=== PATIENT | female | born 1965 | race Caucasian/White ===

== ENCOUNTER 2016-09-15 08:28 | Emergency (ER) | payer BC, OTHER ==
[2016-09-15] MEDS ORDERED: CEPHALEXIN 250 MG CAPSULE PO STA (08:55)
[2016-09-15] MEDS ORDERED: CEPHALEXIN 250 MG CAPSULE PO ONE (08:58)
== END 2016-09-15 09:11 | disposition home or self-care (01) ==
DX: S61.211A Laceration without foreign body of left index finger without damage to nail, initial encounter (principal); W26.0XXA Contact with knife, initial encounter; Y92.009 Unspecified place in unspecified non-institutional (private) residence as the place of occurrence of the external cause
CPT/HCPCS: 99283; A9270

== ENCOUNTER 2016-11-04 10:50 | Outpatient (CLI) | payer OTHER | END 2016-11-04 10:51 | disposition home or self-care (01) | DX: Z12.31 Encounter for screening mammogram for malignant neoplasm of breast (principal) ==

== ENCOUNTER 2017-04-19 07:14 | Day surgery (SDC) | payer OTHER ==
[2017-04-19] MEDS ORDERED: LACTATED RINGERS 1,000 ML IV ONE (07:43)
[2017-04-19] MEDS ORDERED: fentaNYL 100 MCG/2 ML VIAL IVP ONE (08:19)
[2017-04-19] MEDS ORDERED: MIDAZOLAM 2 MG/2 ML VIAL IVP ONE (08:19)
[2017-04-19 09:25] VITALS: BP 105/73
== END 2017-04-19 07:15 | disposition home or self-care (01) ==
LOC: SDS 07:14
PROVIDERS: ATTEND Surgery
PROC: 0DBH8ZX Excision of Cecum, Via Natural or Artificial Opening Endoscopic, Diagnostic (ICD-10-PCS; principal; 2017-04-19 08:15)
DX: Z12.11 Encounter for screening for malignant neoplasm of colon (principal); D12.0 Benign neoplasm of cecum; K57.30 Diverticulosis of large intestine without perforation or abscess without bleeding; Z80.0 Family history of malignant neoplasm of digestive organs
CPT/HCPCS: 45384; J7120; 81025

== ENCOUNTER 2018-09-29 15:31 | Outpatient (CLI) | payer OTHER ==
--- NOTE | 2018-10-02 11:02 | Mammography Report ---
Reason: ENCOUNTER FOR SCREENING MAMMOGRAM FOR MALIGNANT NE Procedure Date: 09/29/2018 Accession Number: [id number] / [id number] Procedure: JESSICA - Screening Mammo w/Joseph CPT Code: FULL RESULT: EXAM: Screening Mammo w/Joseph DATE: 09/29/2018 4:07 PM CLINICAL HISTORY: Routine screening. No reported personal or family history of breast cancer. TECHNIQUE: (B) - Bilateral Bilateral CC and MLO views were obtained. COMPARISON: 11/04/2016 through 10/15/2008 FINDINGS: Bilateral breasts: No suspicious masses, clustered microcalcifications, or regions of architectural distortion are identified. PARENCHYMAL PATTERN: (A) - The breasts demonstrate scattered fibroglandular densities bilaterally. IMPRESSION: Negative examination. BI-RADS category 1 RECOMMENDATION: (ANNUAL) - Recommend routine annual screening mammography. BI-RADS CATEGORY: (1) - Negative STANDARD QUALIFYING STATEMENTS: 1. This examination was not reviewed with the aid of Computer-Aided Detection (CAD). 2. A negative or benign imaging report should not preclude biopsy if clinically suspicious findings are present. 3. Dense breasts may obscure an underlying neoplasm. 4. This examination was reviewed with the aid of 3D breast imaging (tomosynthesis).
== END 2018-09-29 15:32 | disposition home or self-care (01) ==
LOC: DI 15:31
PROVIDERS: ATTEND Physician Assistant
DX: Z12.31 Encounter for screening mammogram for malignant neoplasm of breast (principal)
CPT/HCPCS: 77063; 77067

== ENCOUNTER 2019-05-15 16:16 | Outpatient (CLI) | payer OTHER ==
--- NOTE | 2019-05-16 10:35 | Ultrasound Report ---
Reason: ABN VAGINAL BLEEDING Procedure Date: 05/15/2019 Accession Number: [id number] / [id number] Procedure: US - Pelvic w/Transvaginal CPT Code: Final Report FULL RESULT: EXAM: PELVIC ULTRASOUND EXAM DATE: 05/15/2019 05:40 PM. CLINICAL HISTORY: Abnormal vaginal bleeding. COMPARISON: None. TECHNIQUE: Realtime transabdominal pelvic scan performed to identify the uterus and adnexa and as an overview of other pelvic structures, followed by transvaginal scan to provide greater detail of the uterus and adnexa, with static image documentation. FINDINGS: Uterus: 8.1 x 3.4 x 4.2 cm, volume 60 cc. Anteverted position. Normal overall size and echotexture. Masses: None. Endometrium: 7 mm. Intrauterine device is seen in appropriate position. Cervix: Unremarkable. Right Ovary: 2.9 x 1.9 x 2.9 cm, volume 8 cc. Normal echotexture and blood flow. Left Ovary: 2.8 x 1.7 x 2.2 cm, volume 5 cc. Normal echotexture and blood flow. Free Fluid: None. Other: None. IMPRESSION: Negative pelvic ultrasound. Intrauterine device is seen in appropriate position. RADIA
== END 2019-05-15 16:17 | disposition home or self-care (01) ==
LOC: DI 16:16
PROVIDERS: ATTEND Physician Assistant
DX: N93.9 Abnormal uterine and vaginal bleeding, unspecified (principal); Z97.5 Presence of (intrauterine) contraceptive device
CPT/HCPCS: 76830; 76856

== ENCOUNTER 2022-12-11 10:38 | Emergency (ER) | payer OTHER ==
[2022-12-11] MEDS ORDERED: MORPHINE 2 MG/ML CARPUJECT IVP STA (11:39)
[2022-12-11] MEDS ORDERED: SODIUM CHLORIDE 0.9% 1,000 ML IV STA (11:39)
--- NOTE | 2022-12-11 11:46 | ED Physician Documentation ---
PD HPI ABD PAIN - Stated complaint Stated Complaint: ABD PX - Chief complaint Chief Complaint: Abd Pain - History obtained from History obtained from: Patient - History of Present Illness Timing - onset: How many weeks ago (1) Timing - duration: Weeks (1) Timing - details: Gradual onset Pain level max: 5 Pain level now: 5 Quality: Cramping, Aching, Pain - Additional information Additional information: 57-year-old female states that she has had lower abdominal pain for the past 1 week. She states has been associated with constipation. Today she started having vomiting as well. She complains of diffuse abdominal cramping. She st arted semaglutide approximately 1 month ago. Since then she has had constipation issues. No fevers. No chills. No recent antibiotics. She reports a normal colonoscopy about 5 years ago. No abdominal surgeries. Patient states that she did try a laxative and stool softeners without relief. Review of Systems Constitutional: denies: Fever, Chills Respiratory: denies: Dyspnea, Cough, Wheezing GI: reports: Nausea, Vomiting, Constipation : denies: Dysuria, Frequency, Hesitancy Skin: denies: Rash Musculoskeletal: denies: Neck pain, Back pain Neurologic: denies: Headache PD PAST MEDICAL HISTORY - Past Medical History Cardiovascular: None Respiratory: None Endocrine/Autoimmune: None GI: None : None HEENT: None Psych: None Musculoskeletal: Osteoarthritis Derm: None - Past Surgical History Past Surgical History: Yes Ortho: Hip replacement - Present Medications Home Medications: Ambulatory Orders Medication Instructions Recorded Confirmed Lutein/Zeaxanthin [Ocuvite Lutein 1 each PO DAILY 04/18/17 04/18/17 25-5 mg Softgel] Multivitamin [Multiple Vitamins] 1 each PO DAILYWM 04/18/17 04/18/17 Naproxen Sodium [Aleve] 440 mg PO DAILY PRN 04/18/17 04/18/17 Ciprofloxacin HCl [Cipro] 500 mg PO BID #20 tablet 12/11/22 metroNIDAZOLE [Flagyl] 500 mg PO TID #30 tablet 12/11/22 polyethylene glycoL 3350(BULK) 17 gm PO DAILY PRN #1 each 12/11/22 [Miralax] - Allergies Allergies/Adverse Reactions: Allergies Allergy/AdvReac Type Severity Reaction Status Date / Time Penicillins Allergy Unknown Verified 12/11/22 10:44 - Social History Does the pt smoke?: No Smoking Status: Never smoker Does the pt drink ETOH?: Yes Does the pt have substance abuse?: No - Immunizations Immunizations are current?: Yes PD ED PE NORMAL - Vitals Vital signs reviewed: Yes - General General: Alert and oriented X 3, No acute distress - HEENT HEENT: PERRL, Moist mucous membranes - Neck Neck: Supple, no meningeal sign - Cardiac Cardiac: RRR, Strong equal pulses - Respiratory Respiratory: No respiratory distress, Clear bilaterally - Abdomen Abdomen: Soft, Non tender, Non distended - Back Back: No CVA TTP, No spinal TTP - Derm Derm: Warm and dry - Extremities Extremities: No edema - Neuro Neuro: Alert and oriented X 3 - Psych Psych: Normal mood, Normal affect Results - Vitals Vitals: Vital Signs - 24 hr 12/11/22 12/11/22 12/11/22 10:40 12:19 14:00 Temperature 36.1 C L Heart Rate 124 H 95 88 Respiratory 18 18 Rate Blood Pressure 125/82 H 124/87 H 120/75 O2 Saturation 98 98 100 Oxygen O2 Source Room air - Labs Labs: Laboratory Tests 12/11/22 12/11/22 11:55 11:55 WBC 9.7 RBC 4.78 Hgb 14.5 Hct 42.3 MCV 88.5 MCH 30.3 MCHC 34.3 RDW 13.1 Plt Count 307 MPV 10.1 Neut # (Auto) 8.3 H Lymph # (Auto) 0.7 L [place] # (Auto) 0.7 Eos # (Auto) 0.0 Baso # (Auto) 0.0 Absolute Nucleated RBC 0.00 Nucleated RBC % 0.0 Sodium 135 Potassium 4.3 Chloride 102 Carbon Dioxide 23 Anion Gap 10.0 BUN 15 Creatinine 0.7 Estimated GFR (MDRD) 86 L Glucose 114 H Calcium 9.7 Total Bilirubin 0.9 AST 17 ALT 21 Alkaline Phosphatase 65 Total Protein 7.5 Albumin 4.0 Globulin 3.5 Albumin/Globulin Ratio 1.1 Lipase 39 - Rads (name of study) CT abdomen pelvis Relevant Findings:: Final report received, See rad report PD Medical Decision Making - ED course Complexity details: reviewed results, re-evaluated patient, considered differential, d/w patient, d/w family ED course: Patient did have some relief with an enema. Her CT scan shows mid sigmoid diverticulitis without abscess or perforation. Will place on antibiotics for this. We did discuss risks and benefits of antibiotics including C. difficile diarrhea, patient elects for antibiotics at this time. We will place her on oral laxatives as well. Recommend increasing water and fiber intake. Recommend that she talk to her doctor about whether she should continue semaglutide or not. Patient counseled regarding signs and symptoms for which I believe and urgent re-evaluation would be necessary. Patient with good understanding of and agreement to plan and is comfortable going home at this time This document was made in part using voice recognition software. While efforts are made to proofread this document, sound alike and grammatical errors may occur. Departure - Departure Disposition: Home, Self Care Clinical Impression: Diverticulitis Constipation Qualifiers: Constipation type: unspecified constipation type Qualified Code(s): K59.00 - Constipation, unspecified Condition: Good Instructions: ED Constipation, ED Diverticulitis Follow-Up: ENZO TAYLOR PA-C [Primary Care Provider] - Within 1 week Prescriptions: Ciprofloxacin HCl [Cipro] 500 mg PO BID #20 tablet metroNIDAZOLE [Flagyl] 500 mg PO TID #30 tablet polyethylene glycoL 3350(BULK) [Miralax] 17 gm PO DAILY PRN #1 each PRN Reason: Constipation Comments: Please drink plenty of fluids at home. You do appear to have constipation on your CT scan. You also have mild inflammation called diverticulitis on your CT scan. We will place you on antibiotics for this as discussed. Please follow-up with your doctor for further care. Please return if you worsen. Your prescri ptions were sent to [facility] in [place].
[2022-12-11] MEDS ORDERED: iohexoL-300 100 ML VIAL ONE (11:49)
[2022-12-11 12:07] LABS: BASOPHILS % (AUTO) 0.4 %; EOSINOPHILS % (AUTO) 0.2 %; HCT - HEMATOCRIT 42.3 % (37.0-47.0); HGB - HEMOGLOBIN 14.5 g/dL (12.0-16.0); LYMPHOCYTES # (AUTO) 0.7 10^3/uL (1.5-3.5); LYMPHOCYTES % (AUTO) 6.7 %; MEAN CORPUSCULAR HEMOGLOBIN 30.3 pg (27.0-31.0); MEAN CORPUSCULAR HGB CONC 34.3 g/dL (32.0-36.0); MEAN CORPUSCULAR VOLUME 88.5 fL (81.0-99.0); MEAN PLATELET VOLUME 10.1 fL (7.9-10.8); MONOCYTES # (AUTO) 0.7 10^3/uL (0.0-1.0); NEUTROPHILS # (AUTO) 8.3 10^3/uL (1.5-6.6); NEUTROPHILS % (AUTO) 85.5 %; PLT - PLATELET COUNT 307 10^3/uL (130-450); RED BLOOD COUNT 4.78 10^6/uL (4.20-5.40); RED CELL DISTRIBUTION WIDTH 13.1 % (12.0-15.0); WHITE BLOOD COUNT 9.7 x10^3/uL (4.8-10.8)
[2022-12-11] MEDS ORDERED: ONDANSETRON 4 MG/2 ML VIAL IVP STA (12:10)
[2022-12-11 12:16] LABS: ALBUMIN/GLOBULIN RATIO 1.1 (1.0-2.2); BILIRUBIN,TOTAL 0.9 mg/dL (0.2-1.0); CALCIUM 9.7 mg/dL (8.5-10.3); CREATININE 0.7 mg/dL (0.4-1.0); POTASSIUM 4.3 mmol/L (3.5-5.0); TOTAL PROTEIN 7.5 g/dL (6.7-8.2)
[2022-12-11] MEDS ORDERED: SOAP SUDS ENEMA 1 EACH RC ONE (13:29)
--- NOTE | 2022-12-11 13:48 | CT Report ---
PROCEDURE: CT abdomen pelvis with contrast INDICATIONS: LLQ abd pain, vomiting CONTRAST: 100ml omni 300 TECHNIQUE: After the administration of contrast, 5 mm thick sections acquired from the diaphragms to the symphys is. 5 mm thick coronal and sagittal reformats were acquired. For radiation dose reduction, the foll owing was used: automated exposure control, adjustment of mA and/or kV according to patient size. COMPARISON: FINDINGS: Image quality: Bilateral hip prosthesis create beam hardening artifact limiting assessment of the pel vis Lung bases and heart: Unremarkable. Liver: No solid mass. Gallbladder and biliary tree: Spleen: No splenomegaly. Pancreas: No pancreatic ductal dilation. Adrenals: No adrenal nodule. Kidneys and ureters: No hydronephrosis. No renal cystic lesion which requires follow up. No solid mas s. Bowel and peritoneum: No bowel distension. No pathologic free fluid. Acute diverticulitis of the mid sigmoid. No evidence of abscess, free air or obstruction.. Lymph nodes: No central or retroperitoneal adenopathy. Vessels: No infrarenal aortic aneurysm. PELVIS Reproductive organs: Unremarkable. Bladder: No abnormal wall thickening, accounting for underdistension. Pelvic lymph nodes: No pelvic adenopathy by size criteria. Bones: No aggressive osseous abnormality. Other: No significant ventral or inguinal hernia. IMPRESSION: Mid sigmoid acute diverticulitis without evidence of abscess or obstruction. Reviewed by: Seth Romo MD on 12/11/2022 12:47 PM AKNATHEN Approved by: Seth Romo MD on 12/11/2022 12:47 PM AKDT Station ID: [id number]
[2022-12-11] MEDS ORDERED: MINERAL OIL ENEMA 133 ML BOTTLE RC STA (14:05)
[2022-12-11 14:07] VITALS: BP 120/75
[2022-12-11] MEDS ORDERED: iohexoL-300 100 ML VIAL IVP ONE (15:04)
== END 2022-12-11 14:58 | disposition home or self-care (01) ==
LOC: ED 10:38
DX: K57.32 Diverticulitis of large intestine without perforation or abscess without bleeding (principal); K59.00 Constipation, unspecified
CPT/HCPCS: 36415; 74177; 80053; 83690; 85025; 96374; 96375; 99284; A9270; Q9967

== ENCOUNTER 2023-03-02 15:03 | Outpatient (CLI) | payer OTHER ==
--- NOTE | 2023-03-02 17:11 | XRAY Report ---
PROCEDURE: Knee 3 View LT INDICATIONS: LEFT KNEE PAIN TECHNIQUE: 3 views of the left knee(s) were acquired. COMPARISON: None. FINDINGS: Bones: No fractures or dislocations. Mild to moderate tricompartmental osteoarthritis is seen with j oint space narrowing, subchondral sclerosis and marginal osteophyte formation. No patella subluxation . No suspicious bony lesions. Soft tissues: No knee joint effusion. No suspicious soft tissue calcifications or masses. IMPRESSION: No acute bony abnormality. Mild to moderate tricompartmental osteoarthritis as above. Reviewed by: Raleigh Davenport MD on 03/02/2023 5:10 PM PDT Approved by: Raleigh Davenport MD on 03/02/2023 5:10 PM PDT Station ID: [id number]
== END 2023-03-02 15:04 | disposition home or self-care (01) ==
LOC: DI 15:03
PROVIDERS: ATTEND Physician Assistant
DX: M17.12 Unilateral primary osteoarthritis, left knee (principal)

== ENCOUNTER 2023-03-02 15:03 | Outpatient (CLI) | payer OTHER ==
--- NOTE | 2023-03-08 08:56 | Mammography Report ---
BILATERAL DIGITAL SCREENING MAMMOGRAM 3D/2D: 03/02/2023 CLINICAL: Routine screening. Comparison is made to exams dated: 01/08/2022 mammogram - [facility] and 11/04/2016 mammogra m - [facility]. There are scattered areas of fibroglandular density in both breasts (category b / 25%-50% glandular t issue). No significant masses, calcifications, or other findings are seen in either breast. There has been no significant interval change. IMPRESSION: NEGATIVE There is no mammographic evidence of malignancy. A 1 year screening mammogram is recommended. Based on the Tyrer Cuzick model (a risk assessment model) the patients lifetime risk is 9.7% and her 10 year risk is 3.4%. According to the ACR, ACS, and NCCN guidelines, an annual breast MRI exam remy g with mammogram is recommended if the patients lifetime risk is 20% or greater. This exam was interpreted at Station ID: [id number]. NOTE: For mammograms, a report in lay terms will be sent to the patient. Approximately 15% of breast malignancies will not be visualized mammographically. In the management of a palpable breast mass, a negative mammogram must not discourage biopsy of a clinically suspicious lesion. Electronically Signed By: Jasper cleaning/tristan:03/04/2023 16:18:53 ACR BI-RADS Category 1: Negative 3341F PARENCHYMAL PATTERN: (A) - The breast(s) demonstrate(s) scattered fibroglandular densities. BI-RADS CATEGORY: (1) - 1 Mammogram [id number] 1 year screening LATERALITY: (B)
== END 2023-03-02 15:04 | disposition home or self-care (01) ==
LOC: DI 15:03
PROVIDERS: ATTEND Physician Assistant
DX: Z12.31 Encounter for screening mammogram for malignant neoplasm of breast (principal)

== ENCOUNTER 2023-06-06 08:13 | Day surgery (SDC) | payer OTHER ==
[2023-06-06] MEDS ORDERED: LACTATED RINGERS 1,000 ML IV ONE (08:28)
[2023-06-06] MEDS ORDERED: PROPOFOL 500 MG/50 ML 500 MG/50 ML VIAL ONE ×2 (09:00→10:35)
--- NOTE | 2023-06-06 09:06 | ANESTHESIA ---
Pre-Anesthesia VS, & Labs - Diagnosis family history of colon cancer, screening - Procedure colonoscopy Vital Signs: Temp Pulse Resp BP Pulse Ox O2 Flow Rate 36.3 C L 66 12 120/73 98 06/06/23 08:28 06/06/23 08:28 06/06/23 08:28 06/06/23 08:28 06/06/23 08:28 Height: 5 ft 9 in Weight (kg): 94 kg Body Mass Index: 30.6 BMI Classification: Obese - NPO Other (prep as directed) - Is Patient ?: No Home Medications and Allergies Home Medications: Ambulatory Orders Semaglutide [Ozempic] 1 each IM OAW 06/03/23 buPROPion [Wellbutrin Sr] 1 tab PO DAILY 06/03/23 Multivitamin [Multiple Vitamins] 1 each PO DAILYWM 04/18/17 Naproxen Sodium [Aleve] 440 mg PO DAILY PRN 04/18/17 Semaglutide [Ozempic] 1 each IM OAW 06/03/23 buPROPion [Wellbutrin Sr] 1 tab PO DAILY 06/03/23 Allergies/Adverse Reactions: Allergies Allergy/AdvReac Type Severity Reaction Status Date / Time Penicillins Allergy Unknown Verified 06/06/23 08:34 Anes History & Medical History - Anesthetic History Anesthesia Complications: reports: No previous complications - Medical History Cardiovascular: reports: None Pulmonary: reports: None Gastrointestinal: reports: None Urinary: reports: None Musculoskeletal: reports: Osteoarthritis Endocrine/Autoimmune: reports: None Skin: reports: None Smoking Status: Never smoker Psychosocial: reports: Alcohol (2 daily) History of Cancer?: No - Surgical History Orthopedic: reports: Hip replacement Exam General: Alert, Oriented x3 Dental: WNL Neck Mobility: Normal Thyromental Distance: greater than 6 cm Respiratory: Lungs clear Cardiovascular: Regular rate Plan Anesthesia Type: Total IV Consent for Procedure(s) Verified and Reviewed: Yes Code Status: Attempt Resuscitation ASA classification: 2-Mild systemic disease Is this case an emergency?: No
[2023-06-06] MEDS ORDERED: ONDANSETRON 4 MG/2 ML VIAL ONE (10:05)
[2023-06-06] MEDS ORDERED: LACTATED RINGERS 100 ML IV ONE (10:50)
[2023-06-06 11:12] VITALS: BP 111/74; O2SAT 98
--- NOTE | 2023-06-06 14:10 | ANESTHESIA POST OP EVALUATION ---
Anesthesia Post Eval - Post Anesthesia Eval Vitals: Last Vital Signs Temp 36.7 C 06/06/23 10:50 Pulse 73 06/06/23 11:08 Resp 16 06/06/23 11:08 BP 111/74 06/06/23 11:08 Pulse Ox 98 06/06/23 11:08 O2 Flow Rate CV Function Including HR & BP: Stable Pain Control: Satisfactory Nausea & Vomiting: Negative Mental Status: Baseline Respiratory Status: Airway Patent Hydration Status: Satisfactory Anesthesia Complications: None
== END 2023-06-06 08:14 | disposition home or self-care (01) ==
LOC: SDS 08:13
PROVIDERS: ATTEND Surgery
PROC: 0DBL8ZX Excision of Transverse Colon, Via Natural or Artificial Opening Endoscopic, Diagnostic (ICD-10-PCS; principal; 2023-06-06 09:15)
DX: Z12.11 Encounter for screening for malignant neoplasm of colon (principal); D12.3 Benign neoplasm of transverse colon; K57.30 Diverticulosis of large intestine without perforation or abscess without bleeding; Z80.0 Family history of malignant neoplasm of digestive organs; E66.9 Obesity, unspecified; Z68.30 Body mass index [BMI] 30.0-30.9, adult
CPT/HCPCS: 45380; J7120

== ENCOUNTER 2023-08-15 16:34 | Emergency (ER) | payer OTHER ==
--- NOTE | 2023-08-15 17:06 | ED Physician Documentation ---
History of Present Illness - Stated complaint Stated Complaint: FEVER - Chief complaint Chief Complaint: Fever - History obtained from History obtained from: Patient - Additonal information Additional information: This is a very healthy 58-year-old woman who presents to the evaluation of flulike symptoms and fevers. She has had fever every day for 9 days. It is associated with fevers up to 102, shakes, chills, fatigue, and severe body aches. She has a mild runny nose with a and mild nonproductive cough. On day 5 of her illness she had a televisit with her primary care physician who prescribe d Tamiflu but has not improved. There is no flu test done. She did take 3 home COVID test, all of which were negative. She presents with her who is not ill. She has had no recent travel. Ibuprofen does help with the fevers and other symptoms, but symptoms recur when it wears off. No rashes. She has had nausea. No diarrhea. PD PAST MEDICAL HISTORY - Past Medical History Past Medical History: Yes Cardiovascular: None Respiratory: None Endocrine/Autoimmune: None GI: None : None HEENT: None Psych: None Musculoskeletal: Osteoarthritis Derm: None - Past Surgical History Past Surgical History: Yes Ortho: Hip replacement - Present Medications Home Medications: Ambulatory Orders Medication Instructions Recorded Confirmed Semaglutide [Ozempic] 1 each IM OAW 06/03/23 08/15/23 Ciprofloxacin HCl [Cipro] 500 mg PO BID #20 tablet 08/15/23 buPROPion HCL [Bupropion HCl Sr] 150 mg PO BID 08/15/23 08/15/23 - Allergies Allergies/Adverse Reactions: Allergies Allergy/AdvReac Type Severity Reaction Status Date / Time Penicillins Allergy Unknown Verified 08/15/23 16:44 - Social History Does the pt smoke?: No Smoking Status: Never smoker Does the pt drink ETOH?: Yes Does the pt have substance abuse?: No - Immunizations Immunizations are current?: Yes PD ED PE NORMAL - Vitals Vital signs reviewed: Yes (Moderate resting tachycardia with high normal temperature) - General General: Alert and oriented X 3, No acute distress, Other (Nontoxic and generally well-appearing) - HEENT HEENT: PERRL, EOMI, Ears normal, Moist mucous membranes, Pharynx benign - Neck Neck: Supple, no meningeal sign, No bony TTP - Cardiac Cardiac: Other (Mild resting tachycardia without murmur) - Respiratory Respiratory: No respiratory distress, Clear bilaterally - Abdomen Abdomen: Non tender - Derm Derm: No rash - Neuro Neuro: Alert and oriented X 3, Normal speech Results - Vitals Vitals: Vital Signs - 24 hr 08/15/23 08/15/23 08/15/23 16:38 17:33 18:16 Temperature 37.9 C Heart Rate 134 H 106 H 101 H Respiratory 22 20 16 Rate Blood Pressure 125/72 123/66 124/67 O2 Saturation 97 97 96 08/15/23 20:12 Temperature Heart Rate 98 Respiratory 16 Rate Blood Pressure 114/70 O2 Saturation 95 Oxygen O2 Source Room air - Labs Labs: Laboratory Tests 08/15/23 08/15/23 08/15/23 16:00 16:50 17:00 WBC 15.7 H RBC 3.91 L Hgb 11.2 L Hct 33.6 L MCV 85.9 MCH 28.6 MCHC 33.3 RDW 14.8 Plt Count 471 H MPV 9.4 Neut # (Auto) 13.2 H Lymph # (Auto) 0.9 L [place] # (Auto) 1.2 H Eos # (Auto) 0.1 Baso # (Auto) 0.1 Absolute Nucleated RBC 0.00 Nucleated RBC % 0.0 Sodium Potassium Chloride Carbon Dioxide Anion Gap BUN Creatinine Estimated GFR (MDRD) Glucose Lactic Acid Calcium Total Bilirubin AST ALT Alkaline Phosphatase Total Protein Albumin Globulin Albumin/Globulin Ratio Urine Color Urine Clarity Urine pH Ur Specific [place] Urine Protein Urine Glucose (UA) Urine Ketones Urine Occult Blood Urine Nitrite Urine Bilirubin Urine Urobilinogen Ur Leukocyte Esterase Urine RBC Urine WBC Urine WBC Clumps Ur Squamous Epith Cells Urine Bacteria Urine Casts Ur Microscopic Review Urine Culture Comments Nasal Adenovirus (PCR) NOT DETECTED Nasal B. parapertussis DNA (PCR) NOT DETECTED Nasal Coronavir 229E PCR NOT DETECTED Nasal Coronavir HKU1 PCR NOT DETECTED Nasal Coronavir NL63 PCR NOT DETECTED Nasal Coronavir OC43 PCR NOT DETECTED Nasal Enterovir/Rhinovir PCR NOT DETECTED Nasal Influenza B PCR NOT DETECTED Nasal Influenza A PCR NOT DETECTED Nasal Parainfluen 1 PCR NOT DETECTED Nasal Parainfluen 2 PCR NOT DETECTED Nasal Parainfluen 3 PCR NOT DETECTED Nasal Parainfluen 4 PCR NOT DETECTED Nasal RSV (PCR) NOT DETECTED Nasal B.pertussis DNA PCR NOT DETECTED Nasal C.pneumoniae (PCR) NOT DETECTED Sky Human Metapneumo PCR NOT DETECTED Nasal M.pneumoniae (PCR) NOT DETECTED Nasal SARS-CoV-2 (PCR) NOT DETECTED Infectious [place] Assay NEGATIVE 08/15/23 08/15/23 08/15/23 17:00 17:00 17:20 WBC RBC Hgb Hct MCV MCH MCHC RDW Plt Count MPV Neut # (Auto) Lymph # (Auto) [place] # (Auto) Eos # (Auto) Baso # (Auto) Absolute Nucleated RBC Nucleated RBC % Sodium 130 L Potassium 3.5 Chloride 93 L Carbon Dioxide 28 Anion Gap 9.0 BUN 9 Creatinine 0.9 Estimated GFR (MDRD) 64 L Glucose 132 H Lactic Acid 1.2 Calcium 8.7 Total Bilirubin 1.5 H AST 63 H ALT 160 H Alkaline Phosphatase 283 H Total Protein 6.6 Albumin 3.3 Globulin 3.3 Albumin/Globulin Ratio 1.0 Urine Color DARK YELLOW Urine Clarity CLOUDY Urine pH 6.0 Ur Specific [place] <=1.005 Urine Protein NEGATIVE Urine Glucose (UA) NEGATIVE Urine Ketones NEGATIVE Urine Occult Blood MODERATE H Urine Nitrite POSITIVE H Urine Bilirubin NEGATIVE Urine Urobilinogen 4 H Ur Leukocyte Esterase SMALL H Urine RBC 6-10 H Urine WBC 11-25 H Urine WBC Clumps PRESENT Ur Squamous Epith Cells FEW Squamous Urine Bacteria Moderate H Urine Casts 0-2 WBC Casts Ur Microscopic Review INDICATED Urine Culture Comments INDICATED Nasal Adenovirus (PCR) Nasal B. parapertussis DNA (PCR) Nasal Coronavir 229E PCR Nasal Coronavir HKU1 PCR Nasal Coronavir NL63 PCR Nasal Coronavir OC43 PCR Nasal Enterovir/Rhinovir PCR Nasal Influenza B PCR Nasal Influenza A PCR Nasal Parainfluen 1 PCR Nasal Parainfluen 2 PCR Nasal Parainfluen 3 PCR Nasal Parainfluen 4 PCR Nasal RSV (PCR) Nasal B.pertussis DNA PCR Nasal C.pneumoniae (PCR) Sky Human Metapneumo PCR Nasal M.pneumoniae (PCR) Nasal SARS-CoV-2 (PCR) Infectious [place] Assay - Rads (name of study) Single view chest x-ray is unremarkable Relevant Findings:: Final report received, EMP independent interpretation of test PD Medical Decision Making - ED course ED course: 58-year-old woman with daily fevers for 9 days with shaking chills and aches. She was tachycardic on arrival and not quite febrile at 37.9 degrees. Her vital signs did respond well to IV fluids and workup in the emergency department demonstrated a CBC with a white count of 15,000 and mild anemia, she has mild elevation of liver enzymes and mild hyponatremia with normal lactate. She has pyuria. Negative viral panel, and because of the elevated liver enzymes and monotest was done and negative. Both blood and large urine cultures were o btained and a CT of the abdomen pelvis was suggestive of pyelonephritis which does fit the urinalysis as well and she was treated with Rocephin here. Departure - Departure Disposition: Home, Self Care Clinical Impression: Pyelonephritis Condition: Good Record reviewed to determine appropriate education?: Yes Instructions: Pyelonephritis Dc Prescriptions: Ciprofloxacin HCl [Cipro] 500 mg PO BID #20 tablet Comments: You are seen tonight for fever of unknown origin and what we found is that you have evidence of a kidney infection with elevated white blood cell count, posi tive urinalysis, and CT also suggestive of a right kidney infection. You received a dose of IV ceftriaxone, a long-acting broad-spectrum antibiotic here and I sent a prescription for antibiotics to [facility] in [place]. You did have mild elevation of your liver enzymes and would recommend you follow-up with your doctor in a week and they may want to repeat this, but it is not a large elevation and may just be from you being sick for a fair amount of time now. We will culture your urine, the results should be done in 48-72 hours. If an antibiotic change is necessary we will call you. Forms: PCP List Discharge Date/Time: 08/15/23 20:12
[2023-08-15 17:13] LABS: BASOPHILS # (AUTO) 0.1 10^3/uL (0.0-0.1); BASOPHILS % (AUTO) 0.4 %; EOSINOPHILS # (AUTO) 0.1 10^3/uL (0.0-0.7); EOSINOPHILS % (AUTO) 0.4 %; HCT - HEMATOCRIT 33.6 % (37.0-47.0); HGB - HEMOGLOBIN 11.2 g/dL (12.0-16.0); LYMPHOCYTES # (AUTO) 0.9 10^3/uL (1.5-3.5); LYMPHOCYTES % (AUTO) 5.9 %; MEAN CORPUSCULAR HEMOGLOBIN 28.6 pg (27.0-31.0); MEAN CORPUSCULAR HGB CONC 33.3 g/dL (32.0-36.0); MEAN CORPUSCULAR VOLUME 85.9 fL (81.0-99.0); MEAN PLATELET VOLUME 9.4 fL (7.9-10.8); MONOCYTES # (AUTO) 1.2 10^3/uL (0.0-1.0); MONOCYTES % (AUTO) 7.4 %; NEUTROPHILS # (AUTO) 13.2 10^3/uL (1.5-6.6); NEUTROPHILS % (AUTO) 84.2 %; PLT - PLATELET COUNT 471 10^3/uL (130-450); RED BLOOD COUNT 3.91 10^6/uL (4.20-5.40); RED CELL DISTRIBUTION WIDTH 14.8 % (12.0-15.0); WHITE BLOOD COUNT 15.7 x10^3/uL (4.8-10.8)
[2023-08-15] MEDS: SODIUM CHLORIDE 0.9% 1,000 ML IV STA ×2 (17:14→19:31)
[2023-08-15 17:23] LABS: ALBUMIN 3.3 g/dL (3.2-5.5); BILIRUBIN,TOTAL 1.5 mg/dL (0.2-1.0); CALCIUM 8.7 mg/dL (8.5-10.3); CREATININE 0.9 mg/dL (0.6-1.3); POTASSIUM 3.5 mmol/L (3.5-4.5); TOTAL PROTEIN 6.6 g/dL (6.4-8.9)
--- NOTE | 2023-08-15 17:44 | XRAY Report ---
PROCEDURE: Chest 1V INDICATIONS: cough TECHNIQUE: One view of the chest was acquired. COMPARISON: None. FINDINGS: Surgical changes and devices: None. Lungs and pleura: No pleural effusions or pneumothorax. Lungs are clear. Mediastinum: Mediastinal contours appear normal. Heart size is normal. Bones and chest wall: No suspicious bony lesions. Overlying soft tissues appear unremarkable. IMPRESSION: No acute cardiopulmonary process. Reviewed by: Jigar Hayes MD on 08/15/2023 5:43 PM RUST Approved by: Jigar Hayes MD on 08/15/2023 5:43 PM PST Station ID: [id number]
[2023-08-15 17:45] LABS: B. PARAPERTUSSIS- RESP PCR PAN NOT DETECTED; B. PERTUSSIS- RESP PCR PANEL NOT DETECTED; C. PNEUMONIAE- RESP PCR PANEL NOT DETECTED; CORONAVIRUS 229E-RESP PCR NOT DETECTED; CORONAVIRUS HKU1-RESP PCR NOT DETECTED; CORONAVIRUS NL63-RESP PCR NOT DETECTED; CORONAVIRUS OC43-RESP PCR NOT DETECTED; HUMAN METAPNEUMOVIRUS NOT DETECTED; INFLUENZA A- RESP PCR PANEL NOT DETECTED; INFLUENZA B - RESP PCR PANEL NOT DETECTED; M. PNEUMONIAE- RESP PCR PANEL NOT DETECTED; PARAINFLUENZA VIRUS 1 NOT DETECTED; PARAINFLUENZA VIRUS 2 NOT DETECTED; PARAINFLUENZA VIRUS 3 NOT DETECTED; PARAINFLUENZA VIRUS 4 NOT DETECTED; RHINOVIRUS/ENTEROVIRUS NOT DETECTED; RSV- RESP PCR PANEL NOT DETECTED; SARS-CoV-2 -RESP PCR PANEL NOT DETECTED
[2023-08-15 17:45] LABS: INFECTIOUS MONONUCLEOSIS NEGATIVE (Negative)
[2023-08-15 17:50] LABS: BILIRUBIN,URINE NEGATIVE (NEGATIVE); GLUCOSE, URINE (UA) NEGATIVE (NEGATIVE); KETONES,URINE (UA) NEGATIVE (NEGATIVE); LEUKOCYTE ESTERASE, URINE SMALL (NEGATIVE); NITRITE,URINE POSITIVE (NEGATIVE); OCCULT BLOOD,URINE MODERATE (NEGATIVE); PROTEIN,URINE NEGATIVE (NEGATIVE); UROBILINOGEN,URINE 4 E.U./dL (NORMAL)
[2023-08-15] MEDS ORDERED: iohexoL-300 100 ML VIAL ONE (17:55)
[2023-08-15 17:57] LABS: CLARITY,URINE CLOUDY (CLEAR)
[2023-08-15 18:05] LABS: BACTERIA,URINE Moderate /HPF (None Seen); CASTS, URINE 0-2 WBC Casts /LPF; SQUAMOUS EPITHELIAL CELL,UR FEW Squamous (<= Few); WBC CLUMPS,URINE PRESENT
[2023-08-15] MEDS: iohexoL-300 100 ML VIAL IVP ONE (18:16)
[2023-08-15] MEDS: cefTRIAXone 1 GM VIAL IVP STA (18:32)
--- NOTE | 2023-08-15 19:59 | CT Report ---
PROCEDURE: Abdomen/Pelvis W INDICATIONS: FUO, elev liver enz CONTRAST: 100mL Omni 300 TECHNIQUE: After the administration of intravenous contrast, a CT scan of the abdomen and pelvis was performed. Images were recorded and evaluated at appropriate window settings. Reformats: coronal and sagittal. F or radiation dose reduction, the following was used: automated exposure control, adjustment of mA and /or kV according to patient size. COMPARISON: 12/11/2022. FINDINGS: Image quality: Diagnostic. Lower chest: Bibasilar atelectasis.. Liver: Subcentimeter hypoattenuating liver lesions, too small to characterize by CT. Gallbladder and biliary tree: No radiopaque stones or wall thickening. No biliary dilation. Spleen: No splenomegaly. Pancreas: No pancreatic ductal dilation. Adrenals: No adrenal nodule. Kidneys and ureters: There is heterogeneous enhancement somewhat striated in appearance in the right kidney with mild perinephric stranding. Similar findings but less prominent on the left. No hydroneph rosis. Small bilateral renal hypodensities too small to characterize likely representing cysts. Bilat eral ureters are normal in course and caliber. Distal bilateral ureters obscured by significant beam hardening artifact of bilateral total hip arthroplasties. Stomach, bowel and peritoneum: No bowel distension. No pathologic free fluid. Colonic diverticulosis. No acute diverticulitis. However, there is circumferential wall thickening of the sigmoid colon and regions of diverticula. Appendix is not definitively seen but no secondary findings for acute inflamm ation the right lower quadrant. Lymph nodes: No central or retroperitoneal adenopathy. Vessels: No infrarenal aortic aneurysm. PELVIS Reproductive organs: Unremarkable. Bladder: Urinary bladder is not well visualized secondary to significant beam hardening artifact of t he bilateral hip arthroplasty hardware. Pelvic lymph nodes: No pelvic adenopathy by size criteria. Bones: No aggressive osseous abnormality. Other: No significant ventral or inguinal hernia. IMPRESSION: 1. Findings suggestive of possible pyelonephritis more pronounced on the right. Recommend clinical an d laboratory correlation. 2. Scattered colonic diverticulosis with segment of circumferentially thickened sigmoid colon without significant inflammatory changes. However, visualization of the sigmoid colon limited by moderate be am hardening artifact from adjacent bilateral total hip arthroplasty hardware. Acute diverticulitis n ot completely excluded. Additionally, recommend outpatient screening colonoscopy to exclude underlyin g neoplastic process. 3. Other chronic findings as above. Reviewed by: Jigar Hayes MD on 08/15/2023 7:58 PM PST Approved by: Jigar Hayes MD on 08/15/2023 7:58 PM PST Station ID: [id number]
[2023-08-15 20:20] VITALS: BP 114/70; O2SAT 95
== END 2023-08-15 20:12 | disposition home or self-care (01) ==
LOC: ED 16:34
DX: N12 Tubulo-interstitial nephritis, not specified as acute or chronic (principal); K57.30 Diverticulosis of large intestine without perforation or abscess without bleeding
CPT/HCPCS: 36415; 71045; 74177; 80053; 81001; 83605; 85025; 86308; 87040; 87086; 87181; 87633; 96374; 99284; Q9967; 81003

== ENCOUNTER 2024-03-20 08:00 | Outpatient (CLI) | payer OTHER | END 2024-03-20 23:59 | disposition home or self-care (01) | LOC: LAB.N 08:00 | PROVIDERS: ATTEND Family Medicine | DX: N39.0 Urinary tract infection, site not specified (principal) | CPT/HCPCS: 87077; 87086; 87181 ==